=== PATIENT | male | born 1975 | race Caucasian/White ===

== ENCOUNTER 2025-06-15 08:29 | Outpatient (CLI) | payer OTHER | END 2025-06-15 08:30 | disposition home or self-care (01) | LOC: CSHSLEEP 08:29 | PROVIDERS: ATTEND Internal Medicine | DX: G47.33 Obstructive sleep apnea (adult) (pediatric) (principal); R53.83 Other fatigue; R06.83 Snoring | CPT/HCPCS: 95800 ==

== ENCOUNTER 2025-09-11 09:20 | Outpatient (CLI) | payer OTHER | END 2025-09-11 09:21 | disposition home or self-care (01) | LOC: CSHSLEEP 09:20 | PROVIDERS: ATTEND Internal Medicine | DX: G47.33 Obstructive sleep apnea (adult) (pediatric) (principal); R53.83 Other fatigue; R06.83 Snoring | CPT/HCPCS: 95811 ==